=== PATIENT | female | born 1990 | race African-American/Black ===

== ENCOUNTER → 2022-01-26 | Emergency (ER) | payer BC ==
[~2022-01-26] VITALS: Ht 175.3 cm; Wt 127.0 kg
[~2022-01-26] MED LIST: NATAZIA 28 TAB1 EACH PO; XYZAL5 MG PO
== END | disposition home or self-care (01) ==
LOC: ER 18:21
DX: S99.811A Other specified injuries of right ankle, initial encounter (principal); W18.30XA Fall on same level, unspecified, initial encounter; Y93.89 Activity, other specified; Y92.488 Other paved roadways as the place of occurrence of the external cause; Y99.9 Unspecified external cause status